=== PATIENT | female | born 1990 | race Two or more races ===

== ENCOUNTER 2017-06-19 19:19 | Emergency (ER) | payer MEDICAID ==
[~2017-06-19] VITALS: Ht 160 cm; Wt 59.0 kg
[2017-06-19 19:25] VITALS: BP 117/72
== END 2017-06-19 20:55 | disposition home or self-care (01) ==
LOC: ER 19:21
DX: Z76.0 Encounter for issue of repeat prescription (principal); F90.9 Attention-deficit hyperactivity disorder, unspecified type
CPT/HCPCS: A4606; Z7610